=== PATIENT | female | born 1940 | race Caucasian/White ===

== ENCOUNTER → 2018-09-13 11:52 | Outpatient (CLI) | payer MEDICARE ==
[2012-11-01 15:18] VITALS: BMI 28.5
[~2018-09-13 11:52] MED LIST: AROMASIN25 MG PO; ASPIRIN 81 MG E81 MG PO; AVAPRO300 MG PO; CARAFATE1 G PO; LEVOTHROID88 MCG PO; METOPROLOL TAR100 MG PO; MUCINEX600 MG PO; NORVASC10 MG PO; OYSCO 500+D TAB1 TAB PO; PLAVIX75 MG PO; PRILOSEC20 MG PO; PROTONIX40 MG PO
== END | disposition home or self-care (01) ==
LOC: D.HCCARDIO 09-05 13:00
PROVIDERS: ATTEND Internal Medicine Cardiovascular Disease
DX: I25.10 Atherosclerotic heart disease of native coronary artery without angina pectoris (principal)

== ENCOUNTER → 2019-10-02 11:15 | Outpatient (CLI) | payer MEDICARE ==
[2012-11-01 15:18] VITALS: BMI 28.5
== END | disposition home or self-care (01) ==
LOC: D.HCCECHO 10-01 11:00
PROVIDERS: ATTEND Internal Medicine Cardiovascular Disease
DX: I25.10 Atherosclerotic heart disease of native coronary artery without angina pectoris (principal)